=== PATIENT | male | born 1995 | race Native Hawaiian/Other Pacific Islander ===

== ENCOUNTER 2018-09-18 13:40 | Emergency (ER) | payer BC ==
[~2018-09-18] VITALS: Ht 188 cm; Wt 113.4 kg
[2018-09-18 14:16] LABS: PLATELET COUNT 379 K/uL (142-355)
[2018-09-18 14:25] LABS: POTASSIUM 3.1 mmol/L (3.6-5.2)
[2018-09-18 15:13] VITALS: BP 121/83; TEMP 98.3
== END 2018-09-18 15:15 | disposition home or self-care (01) ==
LOC: ED 13:40
PROVIDERS: Emergency Medicine
DX: R06.4 Hyperventilation (principal); R00.2 Palpitations; R00.0 Tachycardia, unspecified
CPT/HCPCS: 80053; 80307; 81000; 85027; 93005; 99283